=== PATIENT | male | born 1970 | race Caucasian/White ===

== ENCOUNTER 2016-12-06 10:35 | Emergency (ER) | payer OTHER ==
[2016-12-06 10:51] VITALS: BP 127/76
--- NOTE | 2016-12-06 11:36 | RAD ---
Indication: Left forearm pain and wrist pain 3 views of the wrist demonstrates no fracture. No other bone or joint abnormality is identified. IMPRESSION: NO FRACTURE OF THE WRIST IS NOTED.
--- NOTE | 2016-12-06 11:37 | RAD ---
Indication: Left forearm pain and injury. 2 views of left forearm demonstrates no fracture. No other bone or joint abnormality is identified. IMPRESSION: No fracture of the left forearm is noted.
--- NOTE | 2016-12-06 12:16 | UC ---
Dimas Kurtz Salem, scribed for Favian Mendes MD on 12/06/16 at 1118 . Upper Extremity HPI - HPI Summary HPI Summary: Patient is a 46 y/o M who presents to the with an LUE injury for the past 10 days. 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 He denies any break in his sin or any recent falls. He also denies hx of pain in extremity. Pt states that he has not taken any medication for pain. He has no other complaints. Patients medication reviewed this visit. - History of Current Complaint Chief Complaint: UCUpperExtremity Stated Complaint: ARM INJURY Time Seen by Provider: 12/06/16 10:59 Hx Obtained From: Patient Onset/Duration: Gradual Onset, Lasting Days, Still Present Severity Initially: Moderate Severity Currently: Moderate Pain Intensity: 2 Pain Scale Used: 0-10 Numeric Location Of Pain: Is Diffuse - Left forearm. Character: Dull Aggravating Factor(s): Movement, Lifting Alleviating Factor(s): Rest Associated Signs And Symptoms: Positive: Swelling - Allergies/Home Medications Allergies/Adverse Reactions: Allergies Allergy/AdvReac Type Severity Reaction Status Date / Time No Known Allergies Allergy Verified 08/31/15 09:09 Home Medications: Home Medications NK [No Home Medications Reported] 12/06/16 [History Confirmed 12/06/16] PMH/Surg Hx/FS Hx/Imm Hx - Surgical History Surgical History: Yes Surgery Procedure, Year, and Place: LEFT KNEE - Family History Known Family History: Positive: Other - Arthritis. - Social History Alcohol Use: None Substance Use Type: None Smoking Status (MU): Never Smoked Tobacco Review of Systems Constitutional: Negative Musculoskeletal: Other: - LUE pain and weakness. All Other Systems Reviewed And Are Negative: Yes Physical Exam Triage Information Reviewed: Yes Vital Signs: Initial Vital Signs Temp 99.2 F 12/06/16 10:47 Pulse 52 12/06/16 10:47 Resp 16 12/06/16 10:47 BP 127/76 12/06/16 10:47 Pulse Ox 98 12/06/16 10:47 Vital Signs Reviewed: Yes - Additional Comments The patient is well-nourished in no acute distress and in no acute pain. The skin is warm and dry and skin color reflects adequate perfusion. HEENT: The head is normocephalic and atraumatic. The pupils are equal and reactive. The conjunctivae are clear and without drainage. Neck is supple with full range of motion and non-tender. Respiratory: Chest is non-tender. Lungs are clear to auscultation and breath sounds are symmetrical and equal. Cardiovascular: Hear is regular rate and rhythm. There is no murmur or rub auscultated. Musculoskeletal: There is no back pain noted. Extremities are non-tender with full range of motion. Pain on dorsal aspect of forearm. Pain with flexion. Increased pain with circumflexion and duction of thumb. No tenderness with supination and pronation. Diffuse pain in wrists. No ecchymosis, but swelling or forearm. Shoulders are non-tender. Neurological: Patient is alert and oriented to person, place and time. The patient has symmetrical motor strength in all four extremities. Psychiatric: The patient has an appropriate affect and does not exhibit any anxiety or depression. Procedures - Splinting Location: Wrist and forearm. Pre-Made Type: velcro Splint: wrist Pre-Proc Neuro Vasc Exam: normal Post-Proc Neuro Vasc Exam: normal Diagnostics - Radiology FOREARM, LEFT Radiology Interpretation Completed By: Radiologist - IMPRESSION: No fracture of the left forearm is noted. WRIST, LEFT Radiology Interpretation Completed By: Radiologist - IMPRESSION: NO FRACTURE OF THE WRIST IS NOTED. Upper Extremity Course/Dx - Course Course Of Treatment: 46 y/o M presents with an LUE injury for the past 10 days. Left forearm and wrist XR taken. Pt will be DCd with splint, anti-inflammatory , and, instructions. - Differential Dx/Diagnosis Differential Diagnosis/HQI/PQRI: Fracture (Closed), Sprain, Other - tendonitis Provider Diagnoses: Tendinitis, left wrist, acute. Discharge - Discharge Plan Condition: Stable Disposition: HOME Patient Education Materials: Tendinitis (ED) [place] [facility] [place] Additional Instructions: Please follow up [place] [facility] [place] The documentation as recorded by the Dimas mercedes Salem accurately reflects the service I personally performed and the decisions made by , Favian Mendes MD.
== END 2016-12-06 12:18 | disposition home or self-care (01) ==
LOC: UCEAST 10:35
DX: M77.9 Enthesopathy, unspecified (principal); M79.632 Pain in left forearm
CPT/HCPCS: 99211; G0463

== ENCOUNTER 2018-05-13 09:16 | Emergency (ER) | payer OTHER ==
[2018-05-13 09:49] VITALS: BP 123/74
--- NOTE | 2018-05-13 09:51 | UC ---
Elbow Pain - HPI Summary HPI Summary: 48 yo male presents with RIGHT elbow pain. He tells me that on 04/16 he was pushing a heavy box at work and felt a crack in his right elbow. Had immediate pain and hury a lot for the few following days. His pain level has improved, but now his pain radiates down to the back of right hand and up to the posterior right arm. He has taken tylenol for discomfort with on relief. He cannot take NSAIDs due to hx of ulcers. Denies numbness or tingling. - History of Current Complaint Chief Complaint: UCUpperExtremity Stated Complaint: R ELBOW INJURY Time Seen by Provider: 05/13/18 09:50 Hx Obtained From: Patient Onset/Duration: Weeks Severity Initially: Moderate Severity Currently: Mild Pain Intensity: 2 Pain Scale Used: 0-10 Numeric - Allergies/Home Medications Allergies/Adverse Reactions: Allergies Allergy/AdvReac Type Severity Reaction Status Date / Time No Known Allergies Allergy Verified 05/13/18 09:32 Home Medications: Home Medications Lansoprazole CAP (NF) [Prevacid CAP (NF)] 30 mg PO BID 05/13/18 [History Confirmed 05/13/18] Topiramate [Topamax] 100 mg PO DAILY WITH MEAL 05/13/18 [History Confirmed 05/13] PMH/Surg Hx/FS Hx/Imm Hx GI/ History: Gastroesophageal Reflux - Surgical History Surgical History: Yes Surgery Procedure, Year, and Place: LEFT KNEE - Family History Known Family History: Positive: None - Social History Occupation: Employed Full-time Lives: With Family Alcohol Use: None Substance Use Type: None Smoking Status (MU): Never Smoked Tobacco Review of Systems All Other Systems Reviewed And Are Negative: Yes Constitutional: Positive: Negative Skin: Positive: Negative Respiratory: Positive: Negative Cardiovascular: Positive: Negative Neurovascular: Positive: Negative Musculoskeletal: Positive: Other: - Right elbow pain Neurological: Positive: Negative Psychological: Positive: Negative Physical Exam - Summary Physical Exam Summary: GENERAL: NAD. WDWN. No pain distress. SKIN: No rashes, sores, lesions, or open wounds. CHEST: No accessory muscle use. Breathing comfortably and in no distress. CV: Pulses intact radial and ulnar. Cap refill <2seconds MSK: RIGHT elbow: Mild TTP over lateral epicondyle. Mild pain at lateral epicondyle with middle finger extension against resistance. FROM without pain at right elbow. Strength 5/5 including loading inspector strength. No edema or obvious bony deformities. NEURO: Alert. Sensations intact hand and all fingers. PSYCH: Age appropriate behavior. Triage Information Reviewed: Yes Vital Signs: Initial Vital Signs Temp 98.4 F 05/13/18 09:27 Pulse 59 05/13/18 09:27 Resp 18 05/13/18 09:27 BP 123/74 05/13/18 09:27 Pulse Ox 98 05/13/18 09:27 Vital Signs Reviewed: Yes Elbow Pain Course/Dx - Course Course Of Treatment: elbow XR: IMPRESSION: MILD DEGENERATIVE CHANGES. NO ACUTE OSSEOUS INJURY. IF SYMPTOMS PERSIST, RECOMMEND REPEAT. IMAGING. Suspect epicondylitis. Will rx for voltaren gel given his inability to take po NSAIDs. Advise to rest and ice the area. F/u with Occ Med if his symptoms persist or worsen as this was a work related injury. - Differential Dx/Diagnosis Provider Diagnoses: Right lateral epicondylitis Discharge - Sign-Out/Discharge Documenting (check all that apply): Patient Departure All imaging exams completed and their final reports reviewed: Yes - Discharge Plan Condition: Stable Disposition: HOME Prescriptions: Diclofenac 1% GEL (NF) [Voltaren 1% GEL (NF)] 1 applic TOPICAL BID PRN #1 tube PRN Reason: Pain Patient Education Materials: Tennis Elbow (ED), Tendinitis (ED) Referrals: Santos Kwok NP [Primary Care Provider] - Zhou Sorto MD [Medical Doctor] - As Soon As Possible Additional Instructions: If you develop a fever, shortness of breath, chest pain, new or worsening symptoms - please call your PCP or go to the ED. 1) Rest and ice your elbow as much as possible 2) Please call Dr. Sorto at the number below to schedule a follow up appointment as soon as possible for further evaluation of your elbow pain - Billing Disposition and Condition Condition: STABLE Disposition: Home
== END 2018-05-13 10:53 | disposition home or self-care (01) ==
LOC: UCEAST 09:16
DX: M77.11 Lateral epicondylitis, right elbow (principal); K21.9 Gastro-esophageal reflux disease without esophagitis; Z79.899 Other long term (current) drug therapy
CPT/HCPCS: 99212; G0463

== ENCOUNTER → 2018-11-21 06:27 | Day surgery (SDC) | payer OTHER ==
--- NOTE | 2018-11-19 16:56 | HP ---
PREOPERATIVE HISTORY AND PHYSICAL: DATE OF SURGERY/ADMISSION: 11/21/18 DATE OF OFFICE VISIT/ENCOUNTER: 11/18/18 ATTENDING SURGEON: Priscilla Hull MD* (dictated by EMMA Friedman). PROCEDURE: Right elbow distal biceps tendon repair. HISTORY OF PRESENT ILLNESS: This is a 48-year-old male who sustained a work- related injury on 04/16/18. He is employed at [employer]. On the date of injury, he was moving a heavy box of meat on a shelf and he felt a pop in his elbow. The initial pain lasted for a few days and slowly resolved over time, but he has had some lingering discomfort and concentrated at the elbow. He feels like it radiates down his forearm and up to his shoulder. He initially noticed a deformity in the biceps muscle and has had some issues with strength in the arm. The patient attended physical therapy for a while as was prescribed by Dr. Sorto; however, the pain persisted. He was eventually seen by Dr. Hull. An MRI of the arm showed questionable injury to the distal biceps tendon. The patient denies any numbness or tingling down the arm, this is his dominant arm. At this time, the patient has consented to proceed with surgical intervention for this problem in the form of a right distal biceps tendon repair. PAST MEDICAL HISTORY: GERD. PAST SURGICAL HISTORY: 1. Left knee arthroscopy. 2. Hernia repair. MEDICATIONS: 1. Lansoprazole 30 mg daily. 2. Lansoprazole 15 mg every night. 3. Topiramate 50 mg b.i.d. ALLERGIES: No known drug allergies. FAMILY MEDICAL HISTORY: Diabetes. SOCIAL HISTORY: The patient is a employed at [employer]. He denies tobacco use, recreational drug use and does not drink alcohol. REVIEW OF SYSTEMS: Negative for general, cephalic, cardiovascular, respiratory , GI, , other musculoskeletal, integumentary, endocrine, neurologic, and hematologic symptoms. Infectious Diseases: Negative for MRSA, hepatitis C, HIV. PHYSICAL EXAM: GENERAL: Well-developed, well-nourished 48-year-old male, in no acute distress. VITAL SIGNS: Height 6 feet 1 inch, weight 198 pounds, pulse rate 54, blood pressure 116/82. HEENT: Normocephalic, atraumatic. Pupils are equal, round, and reactive to light and accommodation. Extraocular movements are intact. Throat is clear. NECK: Supple. No palpable lymph nodes. PULMONARY: Lungs are clear to auscultation bilaterally. No wheezes, rales, or rhonchi. CARDIOVASCULAR: Regular rate and rhythm. S1, S2. No murmurs, rubs, or gallops. No edema. ABDOMEN: Positive bowel sounds. Soft, nontender. NEUROLOGICAL: Alert and oriented x3. Cranial nerves II through XII are intact. Sensation is intact to light touch. MUSCULOSKELETAL: On exam of his right elbow, there is no visible swelling or ecchymosis. He has significant tenderness to palpation at the insertion of the biceps tendon as well as in the mid aspect of his forearm ulnar side and above the elbow to the radial side. He can resist flexion of the elbow, but it is somewhat painful. He has weakness noted with forearm supination along with pain. Neurovascular function is intact. IMAGING STUDIES: MRI shows edema surrounding the distal biceps tendon. IMPRESSION: Right distal biceps tendon likely partial rupture. PLAN: The patient is scheduled to undergo a right elbow distal biceps tendon repair with Dr. Hull on 11/21/18. He will return to the office 10 days postop for followup and suture removal. A prescription for [place] was e-scribed to the patient's pharmacy for postoperative pain management. EMMA FRIEDMAN [id number]/[facility] #: [id number] MTDCrystal
[~2018-11-21 06:27] MED LIST: Buffered Lidocaine 1% SYRIN* 1 ML/SYRINGE INTRADERM ONE; Bupivacaine 0.5%* 50 ML VIAL ONE; Dexamethasone TAB* 4 MG ONE; Dexamethasone TAB* 4 MG PO ONE; DiMENhydriNATE IV* 50 MG/ML VIAL IV PUSH PRN; Famotidine IV* 10 MG/ML 2 ML (20 mg) IV ONE; Famotidine IV* 10 MG/ML 2 ML (20 mg) ONE; HYDROmorphone INJ1* 1 MG/ML SYRINGE IV PRN; KETAMINE HCL* 50 MG/ML 10 ML VIAL ONE; Ketorolac INJ* 30 MG/ML 1 ML VIAL ONE; Lactated Ringers 1000 ML Bag* 1,000 ML IV SCH; Lidocaine 2% PF * 5 ML VIAL ONE; Midazolam* 1 MG/ML 5 ML VIAL (5 MG) ONE; Morphine 10 MG/ML VIAL (1 ml) ONE; Naloxone* 0.4 MG/ML 1 ML VIAL IV PRN; Ondansetron ODT TAB* 4 MG ONE; Ondansetron TAB* 4 MG PO ONE; PROCHLORPERAZINE INJ 5 MG/ML 2 ML VIAL IV PRN; PROCHLORPERAZINE INJ 5 MG/ML 2 ML VIAL ONE; Propofol* 10 MG/ML 20 ML BTL ONE; ROPIVACAINE 5 MG/ML 30 ML BTL (0.5%) ONE; ceFAZolin 2 GM PREMIX in ORs 2 GM/50 ML BAG IVPB ONE; fentaNYL* 50 MCG/ML 2 ML VIAL (100 MCG VIAL) ONE; oxyCODONE/Acetamin 5/325 MG* TAB ONE; oxyCODONE/Acetamin 5/325 MG* TAB PO PRN
[2018-11-21] MEDS: fentaNYL* 50 MCG/ML 2 ML VIAL (100 MCG VIAL) IV PRN ×2 (10:22→10:29)
[2018-11-21 11:01] VITALS: BP 125/83
--- NOTE | 2018-11-21 12:02 | OP ---
CC: Dr. Hull OPERATIVE REPORT: DATE OF OPERATION: 11/21/18 DATE OF : 70 SURGEON: Priscilla Hull MD ASSISTANTS: EMMA Friedman ANESTHESIA: General. PRE-OP DIAGNOSIS: Right distal biceps tendon partial rupture. POST-OP DIAGNOSIS: Right distal biceps tendon partial rupture. OPERATIVE PROCEDURE: Right distal biceps tendon repair. ESTIMATED BLOOD LOSS: Zero. TOURNIQUET TIME: About an hour. INDICATIONS FOR PROCEDURE: Todd is a 48-year-old male, who injured his right elbow at work. He has on MRI a partial tear of his distal biceps tendon. This has failed to heal after several months of conservative treatment. He presents for repair. DESCRIPTION OF PROCEDURE: The patient was brought to the operating room, was given a general anesthe tic and placed in a supine position on the operating table with a tourniquet around his right upper a rm. The skin of his right upper extremity was prepped and draped in the usual sterile fashion. The upper extremity was exsanguinated and the tourniquet elevated to 250 mmHg. A curved incision was mad e in the antecubital fossa. We dissected through the subcutaneous tissue all the way down to the bic eps tendon insertion on the radial tuberosity. There was a small portion of the tendon still intact and this was removed. The scar tissue that had attempted healing was debrided down to good tendon ti ssue with the arm in full supination and Hohmann retractors on either side of the bone. We drilled t hrough the radial tuberosity through both cortices with a guidewire for the ZipLoop ToggleLoc. We th en reamed from 4.5 mm up to 8 mm on the near cortex and 4.5 mm on the far cortex. The suture from th e ZipLoop kit was whipstitched through the tendon and then the ToggleLoc and ZipLoop were secured to the end of the tendon with that suture. The ToggleLoc was then placed through the far cortex, toggle d and then the ZipLoop was used to bring the tendon down into the hole created with the reamers. It was a very nice and stable fixation. The wound was copiously irrigated with saline. The subcutaneou s tissue was closed with 3-0 Polysorb and the skin with skin jonathan. The wound was dressed with Xer oform, 4x4, Webril, Daniel wrap and range of motion brace set from 60 to 90 degrees of flexion. The pat ient tolerated the procedure well and was brought to the recovery room in good condition. [id number]/[facility] #: [id number]
== END | disposition home or self-care (01) ==
LOC: OR 06:27
PROVIDERS: ATTEND Orthopaedic Surgery
DX: S46.211A Strain of muscle, fascia and tendon of other parts of biceps, right arm, initial encounter (principal); X50.0XXA Overexertion from strenuous movement or load, initial encounter; Y93.89 Activity, other specified; Y92.512 Supermarket, store or market as the place of occurrence of the external cause; Y99.0 Civilian activity done for income or pay; K21.9 Gastro-esophageal reflux disease without esophagitis
CPT/HCPCS: A9270-GY; J0690; J0780; J1885; J2250; J2270; J2704; J2795; J3010; J3490; J8540